=== PATIENT | female | born 1945 | race Caucasian/White ===

== ENCOUNTER 2020-07-20 10:44 | Emergency (ER) | payer MEDICARE, OTHER ==
[~2020-07-20 10:44] MED LIST: HYDR-4383 PO
== END 2020-07-20 12:27 | disposition left against medical advice (07) ==
LOC: ER 10:46
DX: R68.89 Other general symptoms and signs (principal); Z53.21 Procedure and treatment not carried out due to patient leaving prior to being seen by health care provider